=== PATIENT | female | born 1950 | race Hispanic/Latino ===

== ENCOUNTER 2017-03-06 14:13 | Outpatient (CLI) | payer MEDICARE, MEDICAID | END 2017-03-06 14:14 | disposition home or self-care (01) | LOC: BICMAMMO 14:13 | DX: Z13.820 Encounter for screening for osteoporosis (principal); M85.88 Other specified disorders of bone density and structure, other site | CPT/HCPCS: 77080 ==

== ENCOUNTER 2017-04-16 13:21 | Outpatient (CLI) | payer MEDICARE, MEDICAID ==
[2017-04-16 15:03] LABS: Bilirubin Negative (Negative); Blood, Urine Small (Negative); Clarity TURBID (Clear); Glucose, Urine (Dipstick) Negative (Negative); Leukocyte Large (Negative); Nitrite Negative (Negative); Protein, Urine (Dipstick) 30 mg/dL (Neg-Trace); Specific Gravity, Urine 1.023 (1.002-1.036)
[2017-04-16 15:04] LABS: Mean Corpuscular HGB CONC 34.7 g/dL (32.0-36.0); Mean Corpuscular Hemoglobin 31.3 pg (27.0-31.0); Mean Platelet Volume 7.2 fL (7.4-10.4); Platelet Count 315 thou/uL (130-400); Red Blood Cell (RBC) Count 4.16 mill/uL (4.20-5.40); White Blood Cell (WBC) Count 9.2 thou/uL (4.8-10.8)
[2017-04-16 15:06] LABS: Bacteria/HPF 4+ HPF (None Seen); Pathc Cast-AUWi Flag 1.31 (0-2.49)
[2017-04-16 15:09] LABS: Prothrombin Time 13.6 SEC (12.0-14.7)
[2017-04-16 15:10] LABS: PTT 36.1 SEC (22.9-36.1)
[2017-04-16 15:14] LABS: Hyaline Casts/LPF 0-3 HYALINE CAST LPF (0-3 Hyaline)
[2017-04-16 15:22] LABS: Anion Gap 14 mmol/L (10-20); BUN (Urea Nitrogen) 19 mg/dL (9.8-20.1); Calc. Creatinine Clearance 0 mL/min (70-130); Calcium 9.6 mg/dL (7.8-10.44); Carbon Dioxide 29 mmol/L (23-31); Chloride 101 mmol/L (98-107); Estimated GFR-MDRD 67; Glucose 252 mg/dL (80-115); Potassium 4.1 mmol/L (3.5-5.1); Sodium 140 mmol/L (136-145)
--- NOTE | 2017-04-16 21:00 | EKG ---
Test Reason : Blood Pressure : / mmHG Vent. Rate : 085 BPM Atrial Rate : 085 BPM P-R Int : 154 ms QRS Dur : 094 ms QT Int : 380 ms P-R-T Axes : 034 -41 015 degrees QTc Int : 452 ms Normal sinus rhythm Left axis deviation Abnormal ECG No previous ECGs available Confirmed by NIKO DUNCAN ([id number]) on 04/16/2017 9:00:09 PM Referred By: HARSH Confirmed By:NIKO DUNCAN
== END 2017-04-16 13:22 | disposition home or self-care (01) ==
LOC: LABBT 13:21
PROVIDERS: ATTEND Orthopaedic Surgery
DX: Z01.818 Encounter for other preprocedural examination (principal); M16.12 Unilateral primary osteoarthritis, left hip
CPT/HCPCS: 80048; 81001; 85027; 85610; 85730; 87081; 93005; 93010

== ENCOUNTER 2017-04-16 13:30 | Inpatient (IN) | payer MEDICARE, MEDICAID ==
[2017-04-23] MEDS ORDERED: Tranexamic Acid 1,000 MG/100 ML BAG ONE ×2 (06:19→10:16)
[2017-04-23] MEDS ORDERED: CEFAZOLIN/Water 2 GM/20 ML SYRINGE ONE (06:19)
[2017-04-23] MEDS ORDERED: Midazolam HCl 2 mg/2 ml Vial ONE ×2 (06:23→06:27)
[2017-04-23] MEDS ORDERED: Fentanyl 100 MCG/2 ML VIAL ONE ×4 (06:23→07:53)
[2017-04-23] MEDS ORDERED: Levofloxacin 500 mg/D5W 100 ml Premix Bag ONE (06:52)
[2017-04-23] MEDS ORDERED: Naloxone HCl 0.4 mg/ml Vial IVP PRN (07:00)
[2017-04-23] MEDS ORDERED: Promethazine HCl 25 MG SUPP PR PRN (07:00)
[2017-04-23] MEDS ORDERED: Ondansetron HCl/PF 4 MG/2 ML Vial IVP PRN (07:00)
[2017-04-23] MEDS ORDERED: Promethazine HCl 25 MG/ML VIAL IM PRN (07:00)
[2017-04-23] MEDS ORDERED: diphenhydrAMINE 25 MG CAP PO PRN (07:00)
[2017-04-23] MEDS ORDERED: Vancomycin HCl 1.5 GM in Sodium Chloride 0.9% 250 ML 300 ML IVPB SCH ×2 (07:00→19:00)
[2017-04-23] MEDS ORDERED: Zolpidem Tartrate 5 MG TAB PO PRN (07:00)
[2017-04-23] MEDS ORDERED: Ketorolac Tromethamine 30 MG/ML VIAL IVP PRN (07:00)
[2017-04-23] MEDS ORDERED: diphenhydrAMINE 50 MG/ML VIAL IVP PRN (07:00)
[2017-04-23] MEDS ORDERED: Naloxone HCl 0.4 mg/ml Vial IV PRN (07:00)
[2017-04-23] MEDS ORDERED: Fentanyl/Bupivacaine 250 ML in Premix Bag 1 BAG EPIDURAL SCH (07:00)
[2017-04-23] MEDS ORDERED: HYDROcodone/Acetaminophen 5/325 mg Tablet PO PRN (07:00)
[2017-04-23] MEDS ORDERED: traMADol HCl 50 MG TAB PO PRN ×2 (07:00)
[2017-04-23] MEDS ORDERED: Bupivacaine 0.25% 10 ML VIAL EPIDURAL PRN (07:00)
[2017-04-23] MEDS ORDERED: Hydrocerin (Eucerin) Cream 120 gm Jar TOP PRN (07:00)
[2017-04-23] MEDS ORDERED: diphenhydrAMINE 50 MG/ML VIAL IM PRN (07:00)
[2017-04-23 09:18] LABS: Bilirubin Negative (Negative); Blood, Urine Large (Negative); Clarity CLOUDY (Clear); Glucose, Urine (Dipstick) Negative (Negative); Leukocyte Large (Negative); Nitrite Negative (Negative); Protein, Urine (Dipstick) Trace mg/dL (Neg-Trace); Specific Gravity, Urine 1.016 (1.002-1.036); Urobilinogen 0.2 mg/dL (0.2-1.0)
[2017-04-23 09:24] LABS: Bacteria/HPF None Seen HPF (None Seen); Hyaline Casts/LPF 0-3 HYALINE CAST LPF (0-3 Hyaline); Pathc Cast-AUWi Flag 0.27 (0-2.49); RBC/HPF GREATER THAN 50-TNTC HPF (0-3); Squamous Epithelial 0-3 HPF (0-3)
[2017-04-23] MEDS ORDERED: Promethazine HCl 25 MG/ML VIAL ONE (10:29)
--- NOTE | 2017-04-23 10:49 | OP ---
DATE OF PROCEDURE: 04/23/2017 PREOPERATIVE DIAGNOSIS: Left hip osteoarthritis with left dysplastic hip, shortening of the left low er extremity. POSTOPERATIVE DIAGNOSIS: Left hip osteoarthritis with left dysplastic hip, shortening of the left lo wer extremity. PROCEDURE PERFORMED: Left total hip arthroplasty. STAFF: Sae Pimentel M.D. HAULAGE BOSS: Hai Leach PA-C ANESTHESIA: Souza. General endotracheal intubation epidural. ESTIMATED BLOOD LOSS: 40 mL. TOURNIQUET TIME: None. ANTIBIOTICS: Two grams Ancef, vancomycin 1.5 grams, Levaquin 500, TXA was 1 gram. IMPLANTS: A Mcintyre implants, a Tritanium hemispherical 54 mm shell with 36 mm Trident 10 degree faviola y, two torques 35 mm and a 20 mm bone screw and a 130 degree Accolade neck angle with a size 4 with a 36 mm with a -5 anatomic femoral head. COMPLICATIONS: None. HISTORY OF PRESENT ILLNESS: Ms. Christianson is a 66-year-old female who presented with left hip pain for many years. The patient is currently just a household ambulator. She does not walk long distances. She uses a wheelchair for the majority. She has a history of strokes affecting her vision. The pat ient is diabetic. The patient has a significant shortening of her left lower extremity. The patient presented with a dysplastic left hip. The patient had x-ray evidence of shortening. The patient jovel s significant past medical history. I discussed with the family the risks and benefits of the left t otal hip arthroplasty for pain control. I discussed she would not likely improve her walking ambulat ory status. I discussed the risks and benefits of surgery to include foot drop, damage to vital stru ctures, fracture, need for further surgeries, failure of procedure, continued pain despite surgical i ntervention, loss of life or limb. The patient and family understood these risks and benefits and el ected to proceed. PROCEDURE IN DETAIL: Time out was performed designating the patient's left lower extremity as the op erative site based on sight, consents, markings. After completion of timeout, the patient was placed in lateral decubitus position. A Rodriguez had been placed. The patient had a spinal per Anesthesia. Bony prominences were well padded. Axillary roll was placed. After we prepped and draped in sterile fashion and timeout had been performed, we made an incision down through the skin, down to the IT ba nd. The IT band was split to expose the abductors of the hip. We then came down through the abducto rs of the hip to expose the patient's capsule. She was shortened. We excised the patient's capsule. I removed some scar and tissue from the true acetabulum. The patient had been superior and I feel a false acetabulum. After we did that, I made a short femoral neck cut. I just made a short f emoral neck cut and then exposed the acetabulum. I started sequentially reaming using the acetabulum as the guide. I took my reamer, reamed from starting at 44 up to 53. I actually had to retouch it as the cup did not fit very well. I placed the cup into place, I felt it was stable, then removed th e osteophytes peripherally around the rim to help with exposure and soft tissue tenting. After I had removed the osteophytes, the patient's cup felt loose, therefore I re-reamed, placed the cup in my f inal position, placed 2 screws in a posterior superior position to help with fixation of the cup. We then washed, placed our final poly in. We then moved to the femoral neck to the femur. We then bro ached up to a 4, trialed the 4 -5 felt like she had good overall stability. The patient was short. The patient has had pain with flexion and extension. The patient's lengths, she was still short by a t least a centimeter or 2, but I liked the overall reduction. The patient had a good shuck, had over all good alignment. After we placed our final implants, we washed, closed, closed the minimus and me dius with #2 Vicryl for the IT band, #2 Quill running 0 barbed suture then 2-0 barbed suture with glu e. The patient will be weightbearing as tolerated. We will follow her in house.
--- NOTE | 2017-04-23 12:03 | RAD ---
LEFT HIP 2 VIEWS: HISTORY: Left total hip arthroplasty. FINDINGS: There are recent postop changes of total left hip arthroplasty in good position and alignment. Soft tissue air is present. POS: H
[2017-04-23] MEDS ORDERED: Milk Of Magnesia 30 ML UDCUP PO PRN (13:29)
[2017-04-23] MEDS ORDERED: Bisacodyl 10 MG SUPP PR PRN (13:29)
[2017-04-23] MEDS ORDERED: HYDROcodone/Acetaminophen 10/325 mg Tablet PO PRN ×2 (13:29)
[2017-04-23] MEDS ORDERED: Fentanyl 100 MCG/2 ML VIAL SLOW IVP PRN ×2 (13:29)
[2017-04-23] MEDS ORDERED: Acetaminophen 500 MG TAB PO PRN (13:29)
[2017-04-23] MEDS ORDERED: Ondansetron ODT 4 MG TAB PO PRN (13:29)
[2017-04-23] MEDS ORDERED: Fleet Enema 133 ML BOT PR PRN (13:29)
[2017-04-23] MEDS ORDERED: Cepastat Lozenges 1 LOZ PO PRN (13:29)
[2017-04-23] MEDS ORDERED: Ibuprofen 200 MG TAB PO PRN (13:47)
[2017-04-23] MEDS ORDERED: Labetalol 100 MG/20 ML MDV ONE (14:38)
[2017-04-23] MEDS ORDERED: Propofol 200 MG/20 ML VIAL ONE (14:38)
[2017-04-23] MEDS ORDERED: Lidocaine 1% PF 5 ML VIAL ONE (14:38)
--- NOTE | 2017-04-23 15:14 | PDOC.EVN ---
Event Note - Event Note Event Note: Attending note. I have seen and examined Ms. Christianson and discussed her with the resident team. See their H&P. Patient is s/p left RAHEL, doing well. Pain is well controlled, no complaints. Denies dysuria/urgency. NAD, resting comfortably, vitals reviewed. RRR s M, soft 2/6 EMERSON CTAB s w/r/r Left hip with incision c/d/i MAEW, decreased strength on left A/P: DM -restart home meds when diet improves, at goal currently HTN -home meds when indicated Positive leuk esterase -asymptomatic at this time, await C&S and treat depending on orthopedist preference DVT prophylaxis per orthopedic protocol. She has follow up with us scheduled on the . Thank you for this consultation.
[2017-04-23] MEDS: Gabapentin 100 MG CAP PO SCH ×2 (15:48→21:32)
[2017-04-23] MEDS: CEFAZOLIN/Water 2 GM/20 ML SYRINGE SLOW IVP SCH ×2 (15:48→21:32)
[2017-04-23] MEDS: Sodium Chloride 0.9% 1,000 ML IV SCH ×2 (15:54→21:32)
[2017-04-23] MEDS: metFORMIN 500 MG TAB PO SCH (17:30)
[2017-04-23] MEDS ORDERED: FLU VACC TS2017-18 (>65YR) 0.5 ML SYRINGE IM ONE (18:15)
[2017-04-23] MEDS: Atorvastatin Calcium 40 MG TAB PO SCH (21:32)
[2017-04-23] MEDS: rOPINIRole HCl 0.25 MG TAB PO SCH (21:32)
[2017-04-23] MEDS: HYDROcodone/Acetaminophen 5/325 mg Tablet PO PRN (21:34)
--- NOTE | 2017-04-24 00:54 | CON-2 ---
DATE OF CONSULTATION: 04/23/2017 CODE STATUS: FULL CODE. HISTORY OF PRESENT ILLNESS: Ms. Christianson is a 66-year-old patient of our clinic, who is here for a lef t hip replacement with Dr. Pimentel. We have been consulted for medical management of her comorbiditi es. She has history of CVA with residual left-sided weakness as well as type 2 diabetes mellitus, hy pertension, paroxysmal atrial fibrillation, hyperlipidemia, and restless leg syndrome. She was feeli ng well prior to surgery and has no complaints currently. She states her pain is well controlled. F or her paroxysmal atrial fibrillation, she is in discussion with Dr. Christensen about getting started on Plavix. She states she has not taken any of this medication as of yet. PAST MEDICAL HISTORY: 1. Cerebrovascular accident x2 with residual left-sided weakness. 2. Paroxysmal atrial fibrillation. 3. Hypertension. 4. Hyperlipidemia. 5. Neuropathy. 6. Depression. 7. Osteoarthritis. 8. Type 2 diabetes mellitus. 9. Restless leg syndrome. PAST SURGICAL HISTORY: Cholecystectomy. PRESCRIPTIONS: The patient is on the following medications at home: 1. Metformin 500 mg p.o. b.i.d. 2. Losartan 50 mg p.o. daily. 3. Januvia 50 mg p.o. daily. 4. Requip 0.25 p.o. at bedtime. 5. Gabapentin 100 mg p.o. t.i.d. 6. Ibuprofen 400 mg p.o. p.r.n. 7. Calcium carbonate/vitamin D 1 tablet p.o. daily. 8. Atorvastatin 40 mg p.o. at bedtime. SOCIAL HISTORY: The patient denies any history of tobacco, alcohol or drug use. She lives with her daughter currently because she was recently in rehabilitation for her recent stroke, but is originall y from [place]. FAMILY HISTORY: Dad from an aneurysm and had colon cancer. Mother had a stroke. PHYSICAL EXAMINATION: VITAL SIGNS: Blood pressure 96/62, T-max 97.4, respiratory rate 20, heart rate 66, O2 sat 100% on ro om air, weight 80.28 kilograms. GENERAL: No apparent distress, alert and oriented x3. EYES: PERRLA, EOMI. Conjunctivae are within normal limits. CARDIOVASCULAR: Regular rate and rhythm with pansystolic murmur. RESPIRATORY: Clear to auscultation bilaterally, nonlabored, no wheezing or rhonchi. ABDOMEN: Soft, nontender, nondistended. No guarding or rebound. The patient has excoriation on the abdomen from eczema and scratching. EXTREMITIES: No edema. The patient has decreased manager insurance strength on the left and decreased extension strength on the left, which are both chronic. She has slightly decreased manager insurance strength on the right as well. SKIN: Some excoriation on the abdomen from scratching. No skin breakage, bleeding or evidence of in fection. The patient has bandage on left hip over surgical site without any visible drainage or surr ounding erythema. NEUROLOGIC: Cranial nerves II through XII intact. Focal deficits noted are persistent weakness on l eft upper and lower extremities in addition to mild weakness 4/5 in left and right upper extremity. LABORATORY DATA: Glucose is 143. Urinalysis showed large rbc's and wbc's. ASSESSMENT AND PLAN: A 66-year-old female with history of cerebrovascular accident, hypertension and diabetes, who was here status post hip replacement. 1. Postoperative day #0: Pain management, PT and OT per Dr. Pimentel as well as deep venous thrombos is prophylaxis. 2. History of cerebrovascular accident: On aspirin 81 mg. PT, OT as above. 3. Paroxysmal atrial fibrillation: Notes from Dr. Christensen and discussion with patient. She is to be started on Plavix after her rehabilitation for hip replacement. 4. Type 2 diabetes mellitus: Last A1c was 7.4 in February 2017. Continue home metformin and Januvi a once tolerating p.o. 5. Hypertension: On losartan if blood pressure remains stable. 6. Hyperlipidemia: On atorvastatin. Recommend repeat fasting lipid panel as an outpatient. 7. Neuropathy: On gabapentin. 8. Restless leg syndrome: Requip. 9. IV fluids. Normal saline at 100 mL per hour, can discontinue once the patient is consistently to lerating p.o. 10. Antibiotics: Levaquin, vancomycin and cefepime per Dr. Pimentel. The patient should work with P T, OT daily until discharge. 11. Deep venous thrombosis prophylaxis: Per Dr. Pimentel aspirin and early ambulation. Thank you for this consult. Please contact us if we can be of any additional assistance.
[2017-04-24] MEDS: HYDROcodone/Acetaminophen 5/325 mg Tablet PO PRN (02:23)
[2017-04-24 05:54] LABS: Hemoglobin 7.3 g/dL (12.0-16.0); Mean Corpuscular HGB CONC 34.6 g/dL (32.0-36.0); Mean Corpuscular Hemoglobin 31.1 pg (27.0-31.0); Mean Corpuscular Volume 89.9 fl (81.0-99.0); Mean Platelet Volume 7.3 fL (7.4-10.4); Platelet Count 202 thou/uL (130-400); RBC Distribution Width 11.9 % (11.5-14.5); Red Blood Cell (RBC) Count 2.33 mill/uL (4.20-5.40); White Blood Cell (WBC) Count 11.7 thou/uL (4.8-10.8)
[2017-04-24] MEDS: Sodium Chloride 0.9% 1,000 ML IV SCH ×2 (06:07→20:21)
--- NOTE | 2017-04-24 06:43 | PDOC.FM ---
Addendum entered and electronically signed by Judy Arredondo MD 04/24/17 09:36: Correction: losartan, not labetalol Original Note: - Subjective Subjective: Ms. Christianson is experiencing some nausea this morning and has not yet eaten breakfast. She is otherwise feeling ok and says her pain is well-controlled. She has not yet been out of bed with PT. She is using incentive spirometry and passing flatus. - Objective MAR Reviewed: Yes Vital Signs & Weight: Vital Signs (12 hours) Temp Pulse Resp BP Pulse Ox 04/24/17 04:00 100.7 F H 97 18 100/62 95 04/24/17 00:00 100.9 F H 100 18 116/64 95 04/23/17 20:00 99.2 F 98 18 133/64 95 Weight Weight 90.718 kg I&O: 04/22/17 04/23/17 04/24/17 06:59 06:59 06:59 Intake Total 2372 Output Total 525 Balance 1847 Result Diagrams: 04/24/17 05:30 <Judy Arredondo - Last Filed: 04/24/17 09:31> - Objective Vital Signs & Weight: Vital Signs (12 hours) Temp Pulse Pulse Resp BP BP Pulse Ox 04/24/17 11:41 98.4 F 83 19 126/74 04/24/17 11:23 97.5 F L 73 18 119/72 04/24/17 08:15 99.4 F 89 14 115/68 93 L 04/24/17 04:00 100.7 F H 97 18 100/62 95 04/24/17 00:00 100.9 F H 100 18 116/64 95 Weight Admit Weight 80.286 kg Weight 80.286 kg I&O: 04/23/17 04/24/17 04/25/17 06:59 06:59 06:59 Intake Total 2372 2 Output Total 525 Balance 1847 2 Result Diagrams: 04/24/17 05:30 <Ge Soria - Last Filed: 04/24/17 11:54> Phys Exam - Physical Examination Constitutional: NAD HEENT: moist MMs, sclera anicteric Neck: supple Respiratory: no wheezing, clear to auscultation bilateral Cardiovascular: RRR faint systolic murmur Gastrointestinal: soft, non-tender, no distention, positive bowel sounds Musculoskeletal: no edema Neurological: moves all 4 limbs strength LUE and LLE decreased Psychiatric: normal affect, A&O x 3 Deviation from normal: bandage in place on L hip, no drainage <Judy Arredondo - Last Filed: 04/24/17 09:31> Dx/Plan (1) History of CVA with residual deficit Code(s): I69.30 - UNSPECIFIED SEQUELAE OF CEREBRAL INFARCTION Status: Acute (2) Diabetes type 2, controlled Code(s): E11.9 - TYPE 2 DIABETES MELLITUS WITHOUT COMPLICATIONS Status: Acute (3) HTN (hypertension) Code(s): I10 - ESSENTIAL (PRIMARY) HYPERTENSION Status: Acute (4) HLD (hyperlipidemia) Code(s): E78.5 - HYPERLIPIDEMIA, UNSPECIFIED Status: Acute (5) Neuropathy Code(s): G62.9 - POLYNEUROPATHY, UNSPECIFIED Status: Acute (6) Restless leg syndrome Status: Acute (7) Paroxysmal A-fib Code(s): I48.0 - PAROXYSMAL ATRIAL FIBRILLATION Status: Acute (8) Anemia Code(s): D64.9 - ANEMIA, UNSPECIFIED Status: Acute - Plan Plan: 1. s/p L hip replacement - PT/OT/DVT ppx/pain mgmt per Dr. Pimentel 2. HTN - Well-controlled - Resume home labetalol with tolerating PO 3. T2DM - Home Januvia and Metformin - ACHS accucheks - Mild SSI 4. Restless leg syndrome - Requip 5. Neuropathy - Gabapentin 6. Paroxysmal atrial fibrillation - Home labetalol 7. Vit D deficiency/osteoarthritis - Ca/Vit D supplementation 8. Normocytic anemia - EBL in surgery 40 mL - Likely anemia of chronic disease - Continue PO iron - Will add iron studies - Consider transfusion if sypmtomatic PPX: Per Dr. Pimentel <Judy Arredondo - Last Filed: 04/24/17 09:31> Attending Addendum - Attending Addendum I personally evaluated the patient and discussed the management with Dr. Arredondo. I agree with and repeated History, Examination, Assessment and Plan documented above with any addition or exceptions noted below. Continue current management. Fever likely inflammatory post surgical. IS, pain control, continue antibiotics per ortho. <Ge Soria - Last Filed: 04/24/17 11:54>
[2017-04-24] MEDS: Ferrous Gluconate 324 MG TAB PO SCH ×2 (08:20→18:22)
[2017-04-24] MEDS: metFORMIN 500 MG TAB PO SCH ×2 (08:20→18:22)
[2017-04-24] MEDS ORDERED: Dextrose 5% in Water 1,000 ML IV PRN ×2 (09:25→09:27)
[2017-04-24] MEDS ORDERED: Dextrose 50% Abboject 50 ML SYRINGE SLOW IVP PRN ×2 (09:25→09:27)
--- NOTE | 2017-04-24 09:58 | PQF ---
DATE: 04-24-17 ATTN: DR. LOYD BOBBY Please exercise your independent, professional judgment in responding to the clarification form. Clinical indicators are provided on the bottom of this form for your review Please check appropriate box(s): [ ] UTI please specify if due to or related to (as applicable): [ ] Indwelling catheter [ X ] Unable to determine etiology [ ] Contaminated urine specimen without UTI [ ] Other diagnosis [ ] Unable to determine In addition, please specify: Patient had this on admission and had known recent UTI outpatient for which she received antibiotics Present on Admission (POA): [ X] Yes [ ] No [ ] Unable to determine For continuity of documentation, please document condition throughout progress notes and discharge summary. Thank You. CLINICAL INDICATORS - SIGNS / SYMPTOMS / LABS URINE: 04-23-17: URINE BLOOD- LARGE H UR LEUKOCYTE ESTERASE LARGE H URINE RBC GREATER THAN 50-TNTC H URINE WBC GREATER THAN 50- TNTC H RISK FACTORS: 04-23-17: INDWELLING CATHETER TREATMENT: (MAR ) IVF, LEVAQUIN, ANCEF, URINE CULTURE (This form is maintained as a part of the permanent medical record) 2014 [employer] All Rights Reserved INÉS [email or web address] Office: [phone] [facility] HOSPITALRekha
[2017-04-24 10:34] LABS: Iron 28 ug/dL (50-170); Iron Binding Capacity, Total 179 mcg/dL (265-497)
[2017-04-24] MEDS: HumaLOG 300 UNITS/3 ML VIAL SC PRN ×2 (11:50→18:23)
[2017-04-24] MEDS: Losartan 25 MG TAB PO SCH (14:24)
[2017-04-24] MEDS: Alogliptin 6.25 MG TAB PO SCH (14:39)
[2017-04-24] MEDS: Calcium Carbonate + Vit D 1 TAB PO SCH (14:40)
[2017-04-24] MEDS: Gabapentin 100 MG CAP PO SCH ×3 (14:40→20:45)
[2017-04-24] MEDS: Senokot S 8.6-50 MG TAB PO SCH ×2 (14:40→20:45)
[2017-04-24] MEDS: Multivit, Therapeutic 1 TAB PO SCH (14:41)
[2017-04-24 17:18] LABS: Hemoglobin 9.5 g/dL (12.0-16.0)
[2017-04-24] MEDS: Atorvastatin Calcium 40 MG TAB PO SCH (20:45)
[2017-04-24] MEDS: rOPINIRole HCl 0.25 MG TAB PO SCH (20:45)
[2017-04-25] MEDS: HumaLOG 300 UNITS/3 ML VIAL SC PRN ×2 (00:54→21:18)
[2017-04-25] MEDS ORDERED: fentaNYL Citrate/PF 1,250 MCG, Bupivacaine 25 ML in Sodium Chloride 0.9% 250 ML 200 ML EPIDURAL SCH (06:00)
[2017-04-25 06:03] LABS: Hemoglobin 8.3 g/dL (12.0-16.0); Mean Corpuscular HGB CONC 33.9 g/dL (32.0-36.0); Mean Corpuscular Hemoglobin 30.5 pg (27.0-31.0); Mean Corpuscular Volume 90.1 fl (81.0-99.0); Mean Platelet Volume 7.3 fL (7.4-10.4); Platelet Count 193 thou/uL (130-400); RBC Distribution Width 12.2 % (11.5-14.5); Red Blood Cell (RBC) Count 2.72 mill/uL (4.20-5.40); White Blood Cell (WBC) Count 12.4 thou/uL (4.8-10.8)
[2017-04-25] MEDS: Sodium Chloride 0.9% 1,000 ML IV SCH (06:44)
--- NOTE | 2017-04-25 06:45 | PDOC.FM ---
- Subjective Subjective: Feeling well this morning. She worked with PT yesterday and is relieved to have had no more fevers. Her pain is well-controlled currently and she is no longer having nausea. - Objective MAR Reviewed: Yes Vital Signs & Weight: Vital Signs (12 hours) Temp Pulse Resp BP Pulse Ox 04/25/17 04:00 98.7 F 94 17 127/72 95 04/25/17 00:45 98.6 F 93 17 132/73 94 L 04/24/17 21:28 98.6 F 104 H 17 122/71 96 04/24/17 20:25 98.6 F 104 H 17 96 Weight Admit Weight 80.286 kg Weight 80.286 kg I&O: 04/23/17 04/24/17 04/25/17 06:59 06:59 06:59 Intake Total 2372 1652 Output Total 525 325 Balance 1847 1327 Result Diagrams: 04/25/17 05:37 Phys Exam - Physical Examination Constitutional: NAD HEENT: moist MMs, sclera anicteric Neck: supple Respiratory: no wheezing, clear to auscultation bilateral Cardiovascular: RRR faint systolic murmur Gastrointestinal: soft, non-tender, no distention, positive bowel sounds Musculoskeletal: no edema, pulses present chronic weakness in LUE, LLE > RUE, RLE Skin: normal turgor, cap refill <2 seconds Dx/Plan (1) History of CVA with residual deficit Code(s): I69.30 - UNSPECIFIED SEQUELAE OF CEREBRAL INFARCTION Status: Acute (2) Diabetes type 2, controlled Code(s): E11.9 - TYPE 2 DIABETES MELLITUS WITHOUT COMPLICATIONS Status: Acute (3) HTN (hypertension) Code(s): I10 - ESSENTIAL (PRIMARY) HYPERTENSION Status: Acute (4) HLD (hyperlipidemia) Code(s): E78.5 - HYPERLIPIDEMIA, UNSPECIFIED Status: Acute (5) Neuropathy Code(s): G62.9 - POLYNEUROPATHY, UNSPECIFIED Status: Acute (6) Restless leg syndrome Status: Acute (7) Paroxysmal A-fib Code(s): I48.0 - PAROXYSMAL ATRIAL FIBRILLATION Status: Acute (8) Anemia Code(s): D64.9 - ANEMIA, UNSPECIFIED Status: Acute - Plan Plan: 1. s/p L hip replacement - PT/OT/DVT ppx/pain mgmt per Dr. Pimentel 2. HTN - Well-controlled - Resume home losartan 3. T2DM - Home Januvia (substitute in house) and Metformin - ACHS accucheks - Mild SSI 4. Restless leg syndrome - Requip 5. Neuropathy - Gabapentin 6. Paroxysmal atrial fibrillation - Home losartan 7. Vit D deficiency/osteoarthritis - Ca/Vit D supplementation 8. Normocytic anemia - EBL in surgery 40 mL - Likely anemia of chronic disease - Serum iron low, Continue PO iron - s/p 1u pRBC (04/24) PPX: Per Dr. Pimentel and Hai Leach Dispo: Per Dr. Pimentel and Hai Leach
[2017-04-25] MEDS: Ferrous Gluconate 324 MG TAB PO SCH ×2 (08:10→18:13)
[2017-04-25] MEDS: metFORMIN 500 MG TAB PO SCH ×2 (08:10→18:13)
[2017-04-25] MEDS: Calcium Carbonate + Vit D 1 TAB PO SCH (08:11)
[2017-04-25] MEDS: Multivit, Therapeutic 1 TAB PO SCH (08:11)
[2017-04-25] MEDS: Gabapentin 100 MG CAP PO SCH ×3 (08:11→21:18)
[2017-04-25] MEDS: Alogliptin 6.25 MG TAB PO SCH (08:11)
[2017-04-25] MEDS: Senokot S 8.6-50 MG TAB PO SCH ×2 (08:11→21:18)
[2017-04-25] MEDS: Atorvastatin Calcium 40 MG TAB PO SCH (21:18)
[2017-04-25] MEDS: rOPINIRole HCl 0.25 MG TAB PO SCH (21:18)
[2017-04-26 05:57] LABS: Hemoglobin 8.1 g/dL (12.0-16.0); Mean Corpuscular HGB CONC 33.8 g/dL (32.0-36.0); Mean Corpuscular Hemoglobin 30.5 pg (27.0-31.0); Mean Corpuscular Volume 90.3 fl (81.0-99.0); Mean Platelet Volume 7.1 fL (7.4-10.4); Platelet Count 204 thou/uL (130-400); RBC Distribution Width 12.2 % (11.5-14.5); Red Blood Cell (RBC) Count 2.67 mill/uL (4.20-5.40); White Blood Cell (WBC) Count 12.3 thou/uL (4.8-10.8)
--- NOTE | 2017-04-26 07:00 | PDOC.FM ---
- Subjective Subjective: Feeling well this morning. She feels ready to go to rehab. She denies any pain and is tolerating PO and getting up with PT. - Objective MAR Reviewed: Yes Vital Signs & Weight: Vital Signs (12 hours) Temp Pulse Resp BP Pulse Ox 04/26/17 04:09 99.5 F 93 16 121/69 93 L 04/26/17 00:42 100.0 F H 96 18 116/67 93 L 04/25/17 21:53 100.0 F H 100 18 129/68 92 L 04/25/17 20:25 100.0 F H 100 18 92 L Weight Admit Weight 80.286 kg Weight 177 g I&O: 04/24/17 04/25/17 04/26/17 06:59 06:59 06:59 Intake Total 2372 1652 1100 Output Total 974 995 9465 Balance 1847 1327 -200 Result Diagrams: 04/26/17 05:30 <Judy Arredondo - Last Filed: 04/26/17 08:59> - Objective Vital Signs & Weight: Weight Admit Weight 80.286 kg Weight 90.718 kg I&O: 04/27/17 04/28/17 04/29/17 06:59 06:59 06:59 Intake Total 240 Output Total 250 Balance -10 Result Diagrams: 04/26/17 05:30 <Christa Duran - Last Filed: 04/28/17 09:20> Phys Exam - Physical Examination Constitutional: NAD HEENT: moist MMs, sclera anicteric Neck: supple Respiratory: no wheezing, clear to auscultation bilateral Cardiovascular: RRR faint systolic murmur Gastrointestinal: soft, non-tender, no distention, positive bowel sounds Musculoskeletal: no edema, pulses present Neurological: normal sensation, moves all 4 limbs L side overall weaker than R, stable Psychiatric: normal affect, A&O x 3 Deviation from normal: bandage on L hip in place, dry, no surrounding erythema <Judy Arredondo - Last Filed: 04/26/17 08:59> Dx/Plan (1) History of CVA with residual deficit Code(s): I69.30 - UNSPECIFIED SEQUELAE OF CEREBRAL INFARCTION Status: Acute (2) Diabetes type 2, controlled Code(s): E11.9 - TYPE 2 DIABETES MELLITUS WITHOUT COMPLICATIONS Status: Acute (3) HTN (hypertension) Code(s): I10 - ESSENTIAL (PRIMARY) HYPERTENSION Status: Acute (4) HLD (hyperlipidemia) Code(s): E78.5 - HYPERLIPIDEMIA, UNSPECIFIED Status: Acute (5) Neuropathy Code(s): G62.9 - POLYNEUROPATHY, UNSPECIFIED Status: Acute (6) Restless leg syndrome Status: Acute (7) Paroxysmal A-fib Code(s): I48.0 - PAROXYSMAL ATRIAL FIBRILLATION Status: Acute (8) Anemia Code(s): D64.9 - ANEMIA, UNSPECIFIED Status: Acute - Plan Plan: 1. s/p L hip replacement - PT/OT/DVT ppx/pain mgmt per Dr. Pimentel - With fever x2 would d/c epidural anesthesia this morning 2. HTN - Well-controlled - Home losartan 3. T2DM - Home Januvia (substitute in house) and Metformin - ACHS accucheks - Mild SSI 4. Restless leg syndrome - Requip 5. Neuropathy - Gabapentin 6. Paroxysmal atrial fibrillation - Home losartan - Event monitor x1 month to be placed this morning, f/u with Dr. Henry - Plavix for now as patient has HASBLED 3-4, but pending monitoring may need OAC 7. Vit D deficiency/osteoarthritis - Ca/Vit D supplementation 8. Normocytic anemia - EBL in surgery 40 mL - Likely anemia of chronic disease - Serum iron low, Continue PO iron - s/p 1u pRBC (04/24) PPX: Per Dr. Pimentel and Hai Leach Dispo: Per Dr. Pimentel and Hai Leach <Judy Arredondo - Last Filed: 04/26/17 08:59> Attending Addendum - Attending Addendum I personally evaluated the patient and discussed the management with Dr. Arredondo I agree with the History, Examination, Assessment and Plan documented above with any addition or exceptions noted below. Possible d/c to inpatient rehab. Event monitor placement today. Danish <Christa Duran - Last Filed: 04/28/17 09:20>
[2017-04-26] MEDS ORDERED: Clopidogrel Bisulfate 75 MG TAB PO SCH (09:00)
[2017-04-26] MEDS: Multivit, Therapeutic 1 TAB PO SCH (10:23)
[2017-04-26] MEDS: Gabapentin 100 MG CAP PO SCH (10:23)
[2017-04-26] MEDS: metFORMIN 500 MG TAB PO SCH (10:24)
[2017-04-26] MEDS: Losartan 25 MG TAB PO SCH (10:24)
[2017-04-26] MEDS: Calcium Carbonate + Vit D 1 TAB PO SCH (10:24)
[2017-04-26] MEDS: Alogliptin 6.25 MG TAB PO SCH (10:24)
[2017-04-26] MEDS: Senokot S 8.6-50 MG TAB PO SCH (10:25)
[2017-04-26] MEDS: Ferrous Gluconate 324 MG TAB PO SCH (11:06)
--- NOTE | 2017-04-26 12:20 | DIS ---
DATE OF ADMISSION: 04/23/2017 DATE OF DISCHARGE: 04/26/2017 PREOPERATIVE DIAGNOSES: Left hip osteoarthritis with a left dysplastic hip, shortening of the left l ower extremity. POSTOPERATIVE DIAGNOSES: Left hip osteoarthritis with a left dysplastic hip, shortening of the left lower extremity. PROCEDURE: The patient underwent a left total hip arthroplasty. HOSPITAL COURSE: Hospital stay was unremarkable. The patient worked with physical therapy and occup ational therapy and has progressed well. By postoperative day #3, she is ready to be discharged to [facility] nursing facility. DISCHARGE CONDITION: Good/stable. DISPOSITION: care home facility. FOLLOWUP: Follow up would be in 10-14 days or sooner if there are problems or concerns. DISCHARGE MEDICATIONS: Given with usage instructions.
[2017-04-26 16:52] VITALS: BMI 36.6
[2017-04-26] MEDS ORDERED: metFORMIN 500 MG TAB PO SCH (17:00)
[2017-04-26] MEDS ORDERED: Ferrous Gluconate 324 MG TAB PO SCH (17:00)
[2017-04-26] MEDS ORDERED: traMADol HCl 50 MG TAB PO PRN ×2 (17:04→17:05)
[2017-04-26] MEDS ORDERED: HYDROcodone/Acetaminophen 5/325 mg Tablet PO PRN ×2 (17:05)
[2017-04-26 20:31] VITALS: BP 145/69; TEMP 100.7
[2017-04-26] MEDS ORDERED: Atorvastatin Calcium 40 MG TAB PO SCH (21:00)
[2017-04-26] MEDS ORDERED: Gabapentin 100 MG CAP PO SCH (21:00)
[2017-04-26] MEDS ORDERED: rOPINIRole HCl 0.25 MG TAB PO SCH (21:00)
[2017-04-27] MEDS ORDERED: Losartan 25 MG TAB PO SCH (09:00)
[2017-04-27] MEDS ORDERED: Alogliptin 25 MG TAB PO SCH (09:00)
[2017-04-27] MEDS ORDERED: Calcium Carbonate + Vit D 1 TAB PO SCH (09:00)
== END 2017-04-26 20:40 | DRG 470 ==
LOC: SURG A 04-23 05:59 → SJJU 04-23 11:45 → EDSTATUS 04-23 13:30 → UNDODISIN 04-26 14:17
PROVIDERS: ADMIT Orthopaedic Surgery; ATTEND Orthopaedic Surgery
PROC: 0SRB02Z Replacement of Left Hip Joint with Metal on Polyethylene Synthetic Substitute, Open Approach (ICD-10-PCS; principal; 2017-04-23)
PROC: 30233N1 Transfusion of Nonautologous Red Blood Cells into Peripheral Vein, Percutaneous Approach (ICD-10-PCS; 2017-04-24)
DX: M16.7 Other unilateral secondary osteoarthritis of hip (principal); E11.42 Type 2 diabetes mellitus with diabetic polyneuropathy; I48.0 Paroxysmal atrial fibrillation; E11.9 Type 2 diabetes mellitus without complications; D63.8 Anemia in other chronic diseases classified elsewhere; E55.9 Vitamin D deficiency, unspecified; G25.81 Restless legs syndrome; N39.0 Urinary tract infection, site not specified; E78.5 Hyperlipidemia, unspecified; F32.9 Major depressive disorder, single episode, unspecified; I69.398 Other sequelae of cerebral infarction; M21.752 Unequal limb length (acquired), left femur; H53.9 Unspecified visual disturbance; I10 Essential (primary) hypertension; Z79.84 Long term (current) use of oral hypoglycemic drugs
CPT/HCPCS: 36415; 36416; 36430; 81001; 82728; 83540; 83550; 85027; 86850; 86900; 86901; 87086; C1776; G8978-GP-CM; G8979-GP-CK; G8987-GO-CL; G8988-GO-CJ; J1956; J2001; J2250; J2405; J2550; J2704; J3010; J3370; J3490; J7050; P9016

== ENCOUNTER 2017-04-18 10:47 | Outpatient (CLI) | payer MEDICARE, MEDICAID | END 2017-04-18 10:48 | disposition home or self-care (01) | LOC: LABBT 10:47 | PROVIDERS: ATTEND Orthopaedic Surgery | DX: Z01.818 Encounter for other preprocedural examination (principal); M16.12 Unilateral primary osteoarthritis, left hip | CPT/HCPCS: 86850; 86900; 86901 ==